=== PATIENT | female | born 1955 ===

== ENCOUNTER 2023-09-19 17:28 | Emergency (ER) | payer OTHER ==
[2023-09-19] MEDS ORDERED: HYDROmorphone 1 MG/ML Syringe IM ONE (20:13)
[2023-09-19] MEDS ORDERED: LORazepam 2 MG/ML SDV IM ONE (21:25)
== END 2023-09-19 22:35 | disposition home or self-care (01) ==
LOC: DL.ED 17:28
DX: G50.0 Trigeminal neuralgia (principal); Z91.018 Allergy to other foods; Z88.0 Allergy status to penicillin
CPT/HCPCS: 96372; 99282; J1170; J2060